=== PATIENT | male | born 1965 | race Caucasian/White ===

== ENCOUNTER → 2021-01-09 12:31 | Outpatient (CLI) | payer OTHER, SELFPAY ==
[2021-01-16 11:11] LABS: Ca oxalate dihydrate 80 % (.); Ca oxalate monohydr 20 % (.); Size 4x4 mm (.)
== END ==
PROVIDERS: PCP Family Medicine; Visit Provider Specialist
DX: Z87.442 Personal history of urinary calculi (principal)
CPT/HCPCS: 82365

== ENCOUNTER → 2021-01-12 11:57 | Outpatient (CLI) | payer OTHER, SELFPAY ==
[2021-01-12 13:25] LABS: Calcium 10.8 mg/dL (8.4-10.2); Uric Acid 5.9 mg/dL (3.5-8.5)
[2021-01-13 05:42] LABS: Parathyroid Hormone Int 71 pg/mL (15-65)
== END ==
PROVIDERS: PCP Family Medicine; Referring Provider Specialist; Visit Provider Specialist
DX: Z87.442 Personal history of urinary calculi (principal)
CPT/HCPCS: 36415; 82310; 83970; 84550

== ENCOUNTER → 2021-01-18 09:54 | Outpatient (CLI) | payer OTHER, SELFPAY ==
--- NOTE | 2021-01-18 10:09 | DI.RAD.S_ITS ---
PROCEDURE: XR KUB INDICATIONS: KIDNEY STONES TECHNIQUE: One view of the abdomen acquired. COMPARISON: None. FINDINGS: Surgical changes and devices: None. Bowel: Bowel gas pattern is normal. Soft tissues: Left kidney inferior pole calculus measuring at 0.4 cm. Question of calcification in the region of the right pelvic brim. No suspicious abdominal calcifications. Visualized solid organ contours appear normal in size. Bones: No suspicious bony lesions. IMPRESSION: Question of calcification in the region of the right pelvic brim. This could be a kidney stone versus sacral bone island. Left kidney stone measuring 0.[address] KUB for further evaluation. Dictated by: Kian Contreras M.D. on 01/18/2021 at 13:34 Approved by: Kian Contreras M.D. on 01/18/2021 at 13:36
== END ==
PROVIDERS: PCP Family Medicine; Referring Provider Specialist; Visit Provider Specialist
DX: N20.0 Calculus of kidney (principal)
CPT/HCPCS: 74018

== ENCOUNTER → 2023-08-14 09:21 | Outpatient (CLI) | payer OTHER, SELFPAY ==
--- NOTE | 2023-08-14 09:23 | DI.RAD.S_ITS ---
PROCEDURE: XR LUMBAR SPINE MIN 4V INDICATIONS: BACK PAIN TECHNIQUE: 5 views of the lumbar spine were acquired, including bilateral oblique views. COMPARISON: [facility], RG, MRI L-SPINE W/O CONTRAST, 01/09/2023, 7:08. FINDINGS: Bones: 5 nonrib-bearing vertebrae are present. Grade 1 retrolisthesis of L4 on L5. Reversal of the normal lumbar lordosis. There is multilevel facet arthropathy, worse at L4-5 and L5-S1. Mild multilevel disc height loss with degenerative endplate changes and spurring is present. This is most pronounced at L4-5 and L5-S1. No vertebral body compression fractures. No suspicious bony lesions. Soft tissues: Overlying bowel gas pattern is normal. No suspicious soft tissue calcifications. Atherosclerotic vascular calcifications. Oblique images: No pars defects. IMPRESSION: Degenerative changes of the spine as described above. No acute osseous abnormalities. Dictated by: Mckay Marsh M.D. on 08/14/2023 at 9:47 Approved by: Mckay Marsh M.D. on 08/14/2023 at 9:49
== END ==
PROVIDERS: PCP Family Medicine; Referring Provider Physical Medicine & Rehabilitation; Visit Provider Physical Medicine & Rehabilitation
DX: M47.816 Spondylosis without myelopathy or radiculopathy, lumbar region (principal); M47.817 Spondylosis without myelopathy or radiculopathy, lumbosacral region; M54.9 Dorsalgia, unspecified
CPT/HCPCS: 72110

== ENCOUNTER 2023-09-02 13:45 | Outpatient (CLI) | payer OTHER, SELFPAY ==
[2023-09-02] VITALS (8 sets, daily range): BP systolic 125–168; BP diastolic 74–93; PULSE 54–69; RESP 10–21; TEMP 36.3; O2SAT 93–98
--- NOTE | 2023-09-02 14:30 | DI.RAD.S_ITS ---
PROCEDURE: PAIN L/SI FACET INJ/BLK 1STL INDICATIONS: FACET ARTHROPATHY COMPARISON: None. FINDINGS: Fluoroscopic spot filming was performed to verify placement of spinal needles at the left L4, L5, and S1 level(s), as labeled on the films. Appropriate location(s) of the needle tip(s) was confirmed by injection of iodinated contrast. IMPRESSION: Intraoperative fluoroscopy for medial branch block. Dictated by: Rukhsana Robles M.D. on 09/02/2023 at 23:54 Approved by: Rukhsana Robles M.D. on 09/02/2023 at 23:54
[2023-09-02] MEDS: MIDAZOLAM 2 MG/2 ML VIAL IV (15:24)
[2023-09-02] MEDS: iopamidoL 15 ML VIAL 3 ML INJ (15:26)
[2023-09-02] MEDS: BUPIVACAINE 0.5% (PF) 10 ML VIAL 2 ML INJ (15:27)
--- NOTE | 2023-09-02 15:36 | PM.PROC.IR.1 ---
Date/Time/Diagnoses Date of procedure: 09/02/23 Time of procedure: 15:36 Pre-procedure diagnosis: 1. FACET ARTHROPATHY Post-procedure diagnosis: same Procedure Notes Procedure: 1. Left L4, L5 and S1 MB BLOCKS LA Indications: Melvin is referred by Dr. Duque for treatment of Left Axial LBP. Physician: Miguelito Giron Total Fluoroscopy time (seconds): 7 Total sedation minutes: 7 Complications: none Procedure in detail & Post-procedure care: DESCRIPTION OF PROCEDURE Fluoroscopically guided, contrast-controlled left L4, L5 and S1 medial branch blocks with 0.5cc of 0.5% Marcaine. Following review of allergy and review of potential side effects and complications, including, but not necessarily limited to, infection, allergic reaction, local tissue breakdown, nerve injury, paralysis, stroke and possible , the patient indicated that the patient understood and agreed to proceed. An informed consent document was signed by the patient, witnessed by a nurse, and placed in the patient's chart. After review of previous anaesthesic history and IV conscious sedation the patient was deemed safe to proceed with today?s procedure with IV conscious sedation as ASA class II designation. Safety time-out was performed to confirm patient ID, procedure to be performed and site of procedure. IV sedation was accomplished with a combination of 2mg of Versed was administered by the RN after DO order, titrated to patient comfort during the course of the procedure while the patient remained responsive to all verbal commands. In the prone position, following sterile prep and drape of the lumbar region, the left L4, L5 and S1 anatomical location of the medial branch of the dorsal ramus was identified fluoroscopically. Subsequently an anesthetic skin wheal using 1% lidocaine solution was initiated at each of the anatomical spots. Subsequently then a 22-gauge 3.5-inch spinal needle was atraumatically introduced and advanced under fluoroscopic guidance at each of the corresponding sites at the left L4, L5 and S1 MB. After negative aspiration, 0.2cc of Isovue 200 was injected, confirming placement without vascular or intrathecal uptake. Subsequently then 0.5cc of 0.5% Marcaine solution was injected at each of the corresponding sites at the left L4, L5 and S1 medial branch locations. The patient tolerated the procedure well without signs or symptoms of complications. The patient tolerated the procedure well without signs or symptoms of complications prior to transfer to the recovery area continued monitoring without incident. Post-procedure, the patient was monitored initiating provocative activities to measure the amount of relief from block of the facetogenic pain. The patient reported a VAS of 7 prior to the procedure and a post-procedure VAS of 1. It has been a pleasure to assist in the diagnostic and therapeutic care of your patient. POST OP INSTRUCTIONS The patient was provided with a Pain Log to complete over the next several hours and subsequent days prior to the patient's follow up with the ordering physician. If the patient has spray crew relief to the solution applied, then they may be a candidate for medial branch rhizotomy. The patient is aware, was provided, once again, with a Pain Log and will follow up with the referring physician for review and clinical correlation.
== END 2023-09-02 16:05 | disposition home or self-care (01) ==
LOC: RAD 13:46
PROVIDERS: PCP Family Medicine; Referring Provider Physical Medicine & Rehabilitation; Visit Provider Physical Medicine & Rehabilitation
DX: M47.816 Spondylosis without myelopathy or radiculopathy, lumbar region (principal); M47.817 Spondylosis without myelopathy or radiculopathy, lumbosacral region
CPT/HCPCS: 64493; 64494; J2250